=== PATIENT | female | born 1980 ===

== ENCOUNTER 2018-06-05 06:47 | Inpatient (IN) | payer OTHER ==
[2016-11-17 11:34] VITALS: BMI 31.2
[2018-06-05] MEDS ORDERED: cefOXitin IV 2 gm in Saline 2 GM in Sodium Chloride 0.9% 50 ML IV STA (08:57)
[2018-06-05] MEDS ORDERED: Sodium Citrate/Citric Acid 15 ml Sol PO ONE (08:58)
[2018-06-05] MEDS ORDERED: Lactated Ringer's 1,000 ML IV ONE ×2 (09:15→11:31)
--- NOTE | 2018-06-05 09:21 | OBADHP ---
Datetime: 06/05/2018 09:04 Admit Comment, IP Provider: 38 yo female with an IUP at 39.1 weeks Hx of repeat C/S and Multiparity, requesteig Permanent sterilization Admitted for elective repeat C/S with a Tubal Ligation ROS NC PMHx Neg PSHx Appendectomy, Hernia repair and C/S x 1 Social Negtive x 3 Allergies: PCN Pelvic Type - PN: Adequate Extremities - PN: Normal Abdomen - PN: Normal Back - PN: Normal Breast - PN: Not Done Lungs - PN: Normal Heart - PN: Normal Thyroid - PN: Normal Neurologic - PN: Normal HEENT - PN: Normal General - PN: Normal Presentation-Admit: Vertex FHR - Baseline A Provider: 140 Membranes, Provider: Intact Gestation - Est Wks by US: 39.1 Vital Signs Provider: Reviewed IP Chief Complaint: Scheduled Section; Signs/symptoms UTI NICHD Variability Prov Fetus A: Moderate 6-25bpm NICHD Accel Fetus A IP Provider: [id number] FHR Category Provider Fetus A: Category I NICHD Decel Fetus A IP Provider: None Genitourinary Exam: Normal DTRs - PN: Normal EGA AdmitDate IP: 39.1 IP Adm Impression: Term, intrauterine IP Admit Plan: Admit to unit; Initiate Section protocol
[2018-06-05] MEDS ORDERED: Oxytocin 10 Units/ml Inj ONE (09:25)
[2018-06-05 09:27] LABS: BASO % 0.2 % (0.0-2.0); EOS # 0.1 K/uL (0.0-0.7); EOS % 0.8 % (0.0-4.0); HEMOGLOBIN 11.9 g/dL (11.0-16.0); LYMPH # 2.4 K/uL (1.0-4.3); LYMPH % 19.2 % (20.0-40.0); MEAN CELL VOLUME 73.9 fL (81.0-99.0); MEAN CORPUSCULAR HEMOGLOBIN 24.2 pg (27.0-31.0); MEAN CORPUSCULAR HGB CONC 32.7 g/dL (33.0-37.0); MEAN PLATELET VOLUME 8.9 fL (7.2-11.7); MONO # 0.9 K/uL (0.0-0.8); MONO % 7.2 % (0.0-10.0); NEUT # 8.9 K/uL (1.8-7.0); NEUT % 72.6 % (50.0-75.0); NRBC % 0.1 % (0.0-2.0); RBC 4.93 Mil/uL (3.80-5.20); RED CELL DISTRIBUTION WIDTH 16.8 % (11.5-14.5); SQUAMOUS EPITHIAL 8 /hpf (0-5); URINE BILIRUBIN NEGATIVE (NEGATIVE); URINE BLOOD NEGATIVE (NEGATIVE); URINE CLARITY Hazy (Clear); URINE COLOR Yellow (YELLOW); URINE GLUCOSE (UA) NORMAL (Normal); URINE LEUKOCYTE ESTERASE NEG Leu/uL (Negative); URINE PROTEIN NEGATIVE (NEGATIVE); URINE UROBILINOGEN NORMAL mg/dL (0.2-1.0); WHITE BLOOD COUNT 12.3 K/uL (4.8-10.8)
[2018-06-05] MEDS ORDERED: Oxytocin 20 units in LR 2,000 ML IV ONE (09:42)
[2018-06-05] MEDS ORDERED: ePHEDrine 50 mg/ml Inj ONE (09:42)
[2018-06-05] MEDS ORDERED: Morphine 1 mg/ml preservative-free Inj(Duramorph) ONE (09:42)
[2018-06-05] MEDS ORDERED: KETAMINE HCL 50 MG/ML SYRINGE ONE ×2 (10:26→10:45)
[2018-06-05] MEDS ORDERED: Midazolam 2 MG/2 ML VIAL ONE ×3 (10:29→10:59)
[2018-06-05] MEDS ORDERED: DiphenhydrAMINE 50 mg/ml Inj IVP PRN (11:38)
--- NOTE | 2018-06-05 17:01 | OBDS ---
DELIVERY PERSONNEL Delivery Doctor: Dr Marcos Mann Nurse: Fara Coley Production Mechanic: Johana Baca RN Anesthesiologist: Brandee Hightower MD MATERNAL INFORMATION Delivery Anesthesia: Spinal Medications in Delivery: 20 units of pitocin in 1000 ml LR Estimated Blood Loss (ml): 600 Placenta Cultured: Yes Maternal Complications: None RN Comments: liveborn female 9/9, mother and infant in stable condition Provider Comments: Repeat LTC C/S with delivery of a viable female from NAJMA position. Apgars scores 9_9 and BW 8lbs, 10 oz. Regulator Assembler in attendance Bilateral tubal Ligation performed without complications. Placenta, Cord Blood and cord pH were sent to Pathology as wel as portions of Bilateral Fallopian tubes. Pt and both tolerated the procedure well and both left the OR room in S_S condition. LABOR SUMMARY EDC: 06/11/2018 00:00 No. Babies in Womb: 1 LABOR INFORMATION Reason for Induction: Not Applicable Group B Beta Strep: Positive Reason Steroids Not Administered: Not Applicable MEMBRANES Membranes Rupture Method: Artificial Rupture of Membranes: 06/05/2018 10:29 Length of Rupture (hrs): 0.02 Amniotic Fluid Color: Clear STAGES OF LABOR Stage 3 hrs: 0 Stage 3 min: 1 CSECTION DELIVERY Primary Indication: Repeat Elective Other Primary Indication: Multiparity CSection Urgency: Elective CSection Incidence: Repeat Labor: No Labor Elective: Elective CSection Incision: Lower Uterine Transverse Sterilization Procedure: [place] BABY A INFORMATION Delivery Date/Time: 06/05/2018 10:30 Method of Delivery: Born in Route : No : N/A Forceps: N/A Vacuum Extraction: N/A Shoulder Dystocia : No SHOULDER DYSTOCIA BABY A Delivery Date/Time: 06/05/2018 10:30 PRESENTATION/POSITION BABY A Presentation: Cephalic Cephalic Presentation: Vertex Vertex Position: Left Occipital Anterior Breech Presentation: N/A PLACENTA INFORMATION BABY A Placenta Delivery Time : 06/05/2018 10:31 Placenta Method of Delivery: Manual Removal Placenta Status: Delivered SCORES BABY A Heart Rate 1 min: >100 bpm Resp Effort 1 min: Good Cry Reflex Irritability 1 min: Cough or Sneeze or Pulls Away Muscle Tone 1 min: Active Motion Color 1 min: Body [place], Extremities Blue Resuscitation Effort 1 min: Tactile Stimulation SCORE 1 MIN: 9 Heart Rate 5 min: >100 bpm Resp Effort 5 min: Good Cry Reflex Irritability 5 min: Cough or Sneeze or Pulls Away Muscle Tone 5 min: Active Motion Color 5 min: Body [place], Extremities Blue Resuscitation Effort 5 min: N/A SCORE 5 MIN: 9 INFANT INFORMATION BABY A Gestational Age at Delivery: 39.1 Gestational Status: Term Infant Outcome : Liveborn Condition : Stable Infant Sex: Female IDENTIFICATION/MEDS BABY A ID Band Number: [id number] ID Band Location: Left Leg; Left Arm Sensor Applied: Yes Sensor Number: [id number] Sensor Location : Cord Clamp Vitamin K Given : Not Given Erythromycin Given: Not Given WEIGHT/LENGTH BABY A Birthweight (gms): 3915 Weight (lb): 8 Infant Weight (oz): 10 Infant Length Inches: 19.50 Infant Length cms: 49.5 CORD INFORMATION BABY A No. Cord Vessels: 3 Nuchal Cord : N/A Cord pH Baby Venous: 7.33 Cord Blood Taken: Yes Infant Suction: Mouth; Nose ASSESSMENT BABY A Infant Complications: None Physical Findings at Delivery: Within Normal Limits Respirations: Appears Normal Grocery Sacker/ALS Called : No Infant Care By: Alla Reyes RN Transferred To: Remains with Mother
[2018-06-05] MEDS: Simethicone 80 mg Chewtab PO SCH ×3 (18:06→22:30)
[2018-06-06] MEDS: Oxycodone/Acetaminophen 5/325 mg Tab PO PRN ×2 (08:09→14:33)
[2018-06-06 08:26] LABS: MEAN CELL VOLUME 74.8 fL (81.0-99.0); MEAN CORPUSCULAR HEMOGLOBIN 24.5 pg (27.0-31.0); MEAN CORPUSCULAR HGB CONC 32.7 g/dL (33.0-37.0); MEAN PLATELET VOLUME 8.7 fL (7.2-11.7); RBC 4.08 Mil/uL (3.80-5.20); WHITE BLOOD COUNT 13.9 K/uL (4.8-10.8)
[2018-06-06] MEDS: Simethicone 80 mg Chewtab PO SCH ×4 (09:41→21:48)
[2018-06-06] MEDS: Prenatal Multivit/Folic Acid/Iron Tab PO SCH (09:41)
[2018-06-06] MEDS ORDERED: Sodium Chloride 0.9% 1,000 ML IV ONE (12:49)
--- NOTE | 2018-06-06 15:20 | OBPPN ---
Datetime: 06/06/2018 14:36 PP Pain Prov: Abnormal PP Nausea Prov: Denies PP Flatus Prov: No PP BM Prov: No PP Nausea Prov comment: vaginal bleeding-2 pads in 24 hours PP Flatus Prov comment: patient has not voided PP Breasts Prov: Normal PP Heart Prov: Normal PP Lungs Prov: Normal PP Abdomen/Uterus Prov: Normal PP Lochia Prov: Normal PP Vulva/Perineum Prov: Not Done PP CVA Tenderness Prov: Normal PP Extremities Prov: Normal PP C/S Incision Prov: Normal PP Progress Prov: Normal PP Comments Phys Exam Prov: Abdomen: Obese. Soft. Non distended. Incision with kate - clean, dry and intact. Firm fundus, mobile, minimially tender. Mild lociha rubra Extremities: no calf tenderness. Trace pedal edema bilaterally All other systems reviewed and are negative PP Impression Prov: Normal progression; difficulties PP Plan Prov: Continue present management PP Impression Other Prov: voiding difficulty PP Progress Note Prov: S: Patient seen and examined chair side. Patient denies any overnight events. Patient reports mild vaginal bleeding. Patient has gone through 2 pads in 24 hours. Patient reports 6/10 abdominal pain that is relieved with ibuprofen. Patient denies nausea, vomiting, flatus, bowel m ovements, and voiding. Patient has not been ambulating. Patient has been and bottle fee ding. A: 38 year old presents post operative day 2 to uncomplicated . P: Patient appears well. Patient has not been able to void. 1 L of NS was given. If patient is sti ll unable to void, we will reinsert a amor catheter. Patient has not had any bowel movements or pass ed gas. Patient was encouraged to ambulate and patient has been taking simethicone and docusate. Amaris ent's pain has been well controlled with motrin and percocet. Patient's hemoglobin is 10.0. Continue ferrous sulfate. John Paul Bailey, PGY-1, Ob Note for Dr. Brooks Attending Note: 1515 hours - Patient seen and evaluated by me with the Residents. I agree with the above as recorded. NB: pat ient has voided spontaenously x 2 Vital Signs Provider PP: Reviewed; Within Normal Limits
[2018-06-07] MEDS: Oxycodone/Acetaminophen 5/325 mg Tab PO PRN ×4 (00:47→18:04)
[2018-06-07] MEDS: Prenatal Multivit/Folic Acid/Iron Tab PO SCH (09:29)
[2018-06-07] MEDS: Simethicone 80 mg Chewtab PO SCH ×4 (09:29→22:00)
--- NOTE | 2018-06-07 12:42 | OBPPN ---
Datetime: 06/07/2018 08:09 PP Pain Prov: Within normal limits PP Nausea Prov: Denies PP Flatus Prov: Yes PP BM Prov: No PP Nausea Prov comment: patient is voiding PP Breasts Prov: Not Done PP Heart Prov: Normal PP Lungs Prov: Normal PP Abdomen/Uterus Prov: Normal PP Lochia Prov: Not Done PP Vulva/Perineum Prov: Not Done PP CVA Tenderness Prov: Normal PP Extremities Prov: Normal PP C/S Incision Prov: Normal PP Progress Prov: Abnormal PP Comments Phys Exam Prov: Fundus below the umbilicus non tender utuers Incision: clean and intact Extremities: +1 pitting edema in bilateral lower extremities PP Impression Prov: Normal progression; difficulties PP Plan Prov: Continue present management PP Progress Note Prov: S: Patient seen and examined chair side. Patient denies any overnight events. Patient reports flatus and ability to void urine today. Patient reports 5/10 abdominal pain that is relieved with ibuprofen and percocet. Patient denies nausea, vomiting, vaginal bleeding, bowel moveme nts. Patient has started ambulating. Patient has been and bottle feeding due to insuffi cient milk production A: 38 year old presents post operative day 2 to uncomplicated . pain mangnet reguar diet encourge mabito and breast feeding am labs John Paul Bailey, PGY-1, Ob Note for Dr. Cliff humphrey iwth above pt seen and emxaiend plan as above Vital Signs Provider PP: Reviewed; Within Normal Limits
[2018-06-08 01:34] VITALS: RESP 20
[2018-06-08] MEDS: Oxycodone/Acetaminophen 5/325 mg Tab PO PRN ×2 (03:47→10:11)
[2018-06-08 09:00] VITALS: BP 110/64; PULSE 91; TEMP 98.4; O2SAT 100
[2018-06-08] MEDS: Prenatal Multivit/Folic Acid/Iron Tab PO SCH (10:08)
[2018-06-08] MEDS: Simethicone 80 mg Chewtab PO SCH (11:04)
--- NOTE | 2018-06-08 14:22 | OBDCSUM ---
Datetime: 06/08/2018 14:12 Discharged to, Provider: Home Follow up at, Provider: [facility] Disch Instr Activity: Normal activity; May be up to bathroom; May be up for meals; May Shower Disch Instr Diet: Regular Discharge Instructions, Provider: Routine instructions given Discharge Diagnosis, Provider: Term Delivered Follow up in weeks, Provider: 06/12/18 Contraception discussed, Prov: No Disch Activity Restrictions: No exercising; No lifting; No sexual activity; Nothing in vagina - Inte rcourse, tampons, douche Discharge Diagnosis Prov Other: Advanced maternal age Status post repeat section Status post bilateral tubal ligation Acute blood loos anemia - asymptomatic Datetime: 06/08/2018 08:08 Discharged to, Provider: Home Follow up at, Provider: [facility] Disch Instr Activity: Normal activity Disch Instr Diet: Regular Discharge Time: 06/08/2018 08:09 Follow up in weeks, Provider: 06/12/18 Disch Referrals: None Disch Activity Restrictions: No exercising; No lifting; No driving; Minimize walking; Minimize stair -climbing; No sexual activity; Nothing in vagina - [place], tampons, douche
== END 2018-06-08 13:00 | disposition home or self-care (01) | DRG 370 ==
LOC: C.4D 07:15 → C.4M 15:00
PROVIDERS: ADMIT Obstetrics & Gynecology; ATTEND Obstetrics & Gynecology
PROC: 10D00Z1 Extraction of Products of Conception, Low, Open Approach (ICD-10-PCS; principal; 2018-06-05)
PROC: 0UB70ZZ Excision of Bilateral Fallopian Tubes, Open Approach (ICD-10-PCS; 2018-06-05)
DX: O34.211 Maternal care for low transverse scar from previous cesarean delivery (principal); O99.02 Anemia complicating childbirth; D62 Acute posthemorrhagic anemia; O23.43 Unspecified infection of urinary tract in pregnancy, third trimester; Z30.2 Encounter for sterilization; Z3A.39 39 weeks gestation of pregnancy; Z37.0 Single live birth

== ENCOUNTER 2018-12-09 08:53 | Outpatient (CLI) | payer OTHER | END 2018-12-09 08:54 | disposition home or self-care (01) | LOC: C.VASC 08:53 | DX: M25.532 Pain in left wrist (principal) ==